=== PATIENT | male | born 1960 | race African-American/Black ===

== ENCOUNTER 2018-02-24 15:48 | Emergency (ER) | payer OTHER ==
[2018-02-24] MEDS ORDERED: Naproxen 500 MG TAB ONE (17:41)
[2018-02-24 17:48] LABS: #Basophils 0.1 thou/uL (0.0-0.2); #Eosinphils 0.1 thou/uL (0.0-0.7); #Lymphocytes 1.9 thou/uL (1.20-3.40); #Monocytes 0.9 thou/uL (0.11-0.59); #Neutrophils 2.8 thou/uL (1.40-6.50); %Basophils 1.2 % (0.0-1.0); %Eosinophils 2.6 % (0.0-10.0); %Lymphocytes 33.1 % (21.0-51.0); %Monocytes 14.9 % (0.0-10.0); %Neutrophils 48.3 % (42.0-75.0); Hemoglobin 12.7 g/dL (14.0-18.0); Mean Corpuscular HGB CONC 33.4 g/dL (32.0-36.0); Mean Corpuscular Hemoglobin 31.8 pg (27.0-31.0); Mean Corpuscular Volume 95.1 fl (80.0-94.0); Mean Platelet Volume 7.1 fL (7.4-10.4); Platelet Count 228 thou/uL (130-400); RBC Distribution Width 15.2 % (11.5-14.5); Red Blood Cell (RBC) Count 3.99 mill/uL (4.70-6.10); White Blood Cell (WBC) Count 5.8 thou/uL (4.8-10.8)
[2018-02-24 18:01] LABS: ALT (SGPT) 29 U/L (8-55); AST (SGOT) 22 U/L (5-34); Albumin 3.7 g/dL (3.5-5.0); Alkaline Phosphatase 103 U/L (40-150); Anion Gap 12 mmol/L (10-20); BUN (Urea Nitrogen) 12 mg/dL (8.4-25.7); Bilirubin, Total 0.5 mg/dL (0.2-1.2); Calc. Creatinine Clearance 0 mL/min (70-130); Carbon Dioxide 27 mmol/L (22-29); Chloride 106 mmol/L (98-107); Estimated GFR-MDRD Greater than 90; Globulin 3.2 g/dL (2.4-3.5); Glucose 117 mg/dL (70-105); Potassium 3.8 mmol/L (3.5-5.1); Protein, Total 6.9 g/dL (6.0-8.3); Sodium 141 mmol/L (136-145)
== END 2018-02-24 19:35 | disposition short-term general hospital (02) ==
LOC: MADERS 15:48
DX: I82.621 Acute embolism and thrombosis of deep veins of right upper extremity (principal); F17.200 Nicotine dependence, unspecified, uncomplicated; Z85.038 Personal history of other malignant neoplasm of large intestine
CPT/HCPCS: 80053; 85025; 85379; 99284

== ENCOUNTER 2018-10-22 12:31 | Emergency (ER) | payer SELFPAY ==
[2018-10-22] MEDS ORDERED: Clindamycin 150 MG CAP ONE (13:03)
[2018-10-22] MEDS ORDERED: Morphine 4 MG/ML VIAL ONE (13:03)
[2018-10-22] MEDS ORDERED: Lidocaine 1% w/Epinephrine 1:100K 30 ML VIAL ONE (13:04)
[2018-10-22] MEDS ORDERED: Acetaminophen 325 MG TAB ONE (13:48)
[2018-10-22] MEDS ORDERED: HYDROcodone/Acetaminophen 10/325 mg Tablet ONE (13:48)
== END 2018-10-22 13:50 | disposition home or self-care (01) ==
LOC: MADERS 12:31
DX: L02.416 Cutaneous abscess of left lower limb (principal); F17.210 Nicotine dependence, cigarettes, uncomplicated
CPT/HCPCS: 10061; 96372; J2001; J2270

== ENCOUNTER 2018-12-23 09:40 | Emergency (ER) | payer SELFPAY | END 2018-12-23 10:37 | disposition home or self-care (01) | LOC: MADERS 09:40 | DX: K64.4 Residual hemorrhoidal skin tags (principal); F17.210 Nicotine dependence, cigarettes, uncomplicated | CPT/HCPCS: 99284 ==

== ENCOUNTER 2019-02-11 21:53 | Emergency (ER) | payer OTHER, SELFPAY ==
[~2019-02-11 21:53] MED LIST: Iopamidol 370 76% 100 ML VIAL ONE
[2019-02-11 22:40] LABS: #Lymphocytes 1.8 thou/uL (1.20-3.40); #Monocytes 0.5 thou/uL (0.11-0.59); #Neutrophils 5.7 thou/uL (1.40-6.50); %Basophils 0.5 % (0.0-1.0); %Eosinophils 0.2 % (0.0-10.0); %Lymphocytes 21.9 % (21.0-51.0); %Neutrophils 71.4 % (42.0-75.0); Hemoglobin 13.9 g/dL (14.0-18.0); Mean Corpuscular Hemoglobin 29.4 pg (27.0-31.0); Mean Corpuscular Volume 91.9 fL (78.0-98.0); Mean Platelet Volume 6.5 fL (7.4-10.4); Platelet Count 280 thou/uL (130-400); Red Blood Cell (RBC) Count 4.73 mill/uL (4.70-6.10)
[2019-02-11 22:54] LABS: ALT (SGPT) 16 U/L (8-55); AST (SGOT) 15 U/L (5-34); Albumin 4.2 g/dL (3.5-5.0); Alkaline Phosphatase 98 U/L (40-150); Anion Gap 14 mmol/L (10-20); BUN (Urea Nitrogen) 8 mg/dL (8.4-25.7); Bilirubin, Total 0.8 mg/dL (0.2-1.2); Calc. Creatinine Clearance 0 mL/min (70-130); Calcium 9.5 mg/dL (7.8-10.44); Carbon Dioxide 27 mmol/L (22-29); Chloride 101 mmol/L (98-107); Estimated GFR-MDRD Greater than 90; Globulin 3.6 g/dL (2.4-3.5); Glucose 115 mg/dL (70-105); Potassium 4.4 mmol/L (3.5-5.1); Protein, Total 7.8 g/dL (6.0-8.3); Sodium 138 mmol/L (136-145)
--- NOTE | 2019-02-11 23:06 | CT ---
FCT abdomen and pelvis with IV contrast. Oral contrast was not administered. INDICATIONS: Abdominal pain COMPARISON: None FINDINGS: Lung bases are clear Liver, spleen, and pancreas appear unremarkable. Stomach and duodenum appear unremarkable. Adrenal glands appear normal. Kidneys appear unremarkable. Collecting structures and urinary bladder appear unremarkable. Small 1.0 cm cystic lesion inferior left kidney. Small bowel loops are normal caliber and exhibit normal fold pattern. Appendix is identified and appears unremarkable. Stool throughout the colon. There is a segment of luminal narrowing in the mid sigmoid of uncertain s ignificance. Recommend elective colonoscopy Aorta is normal caliber. No evidence of retroperitoneal or mesenteric adenopathy. Mild prostatic hypertrophy. Subcutaneous tissues, abdominal wall, and muscular structures appear unremarkable. Osseous structures appear unremarkable. IMPRESSION: Segment of luminal narrowing in the sigmoid colon. Recommend elective colonoscopy. No acute process identified.
[2019-02-11 23:11] LABS: Bilirubin Negative (Negative); Blood, Urine Negative (Negative); Clarity Clear (Clear); Glucose, Urine (Dipstick) Negative (Negative); Leukocyte Negative (Negative); Nitrite Negative (Negative); Protein, Urine (Dipstick) Trace mg/dL (Neg-Trace); Urobilinogen 0.2 mg/dL (0.2-1.0)
== END 2019-02-11 23:39 | disposition home or self-care (01) ==
LOC: MADERS 21:53
DX: R10.9 Unspecified abdominal pain (principal); N50.811 Right testicular pain; F17.210 Nicotine dependence, cigarettes, uncomplicated
CPT/HCPCS: 36415; 74177; 80053; 81003; 85025; Q9967

== ENCOUNTER 2020-05-25 04:45 | Emergency (ER) | payer OTHER ==
[2020-05-25] MEDS ORDERED: Ketorolac Tromethamine 60 MG/2 ML VIAL ONE (05:11)
== END 2020-05-25 05:35 | disposition home or self-care (01) ==
LOC: MADERS 04:45
DX: S43.402A Unspecified sprain of left shoulder joint, initial encounter (principal); K21.9 Gastro-esophageal reflux disease without esophagitis; F17.210 Nicotine dependence, cigarettes, uncomplicated; X58.XXXA Exposure to other specified factors, initial encounter
CPT/HCPCS: 96372; 99283; J1885

== ENCOUNTER 2021-04-29 17:49 | Emergency (ER) | payer OTHER ==
[2021-04-29 18:44] LABS: #Basophils 0.1 thou/uL (0.0-0.2); #Eosinphils 0.2 thou/uL (0.0-0.7); #Lymphocytes 2.5 thou/uL (1.20-3.40); #Monocytes 0.4 thou/uL (0.11-0.59); #Neutrophils 3.7 thou/uL (1.40-6.50); %Basophils 1.1 % (0.0-1.0); %Eosinophils 2.9 % (0.0-10.0); %Lymphocytes 36.2 % (21.0-51.0); %Monocytes 5.6 % (0.0-10.0); %Neutrophils 54.2 % (42.0-75.0); Hemoglobin 14.2 g/dL (14.0-18.0); Mean Corpuscular HGB CONC 32.1 g/dL (32.0-36.0); Mean Corpuscular Hemoglobin 30.8 pg (27.0-31.0); Mean Corpuscular Volume 95.9 fL (78.0-98.0); Mean Platelet Volume 7.4 fL (7.4-10.4); Platelet Count 274 thou/uL (130-400); RBC Distribution Width 12.2 % (11.5-14.5); Red Blood Cell (RBC) Count 4.62 mill/uL (4.70-6.10); White Blood Cell (WBC) Count 6.8 thou/uL (4.8-10.8)
[2021-04-29 19:00] LABS: Acetaminophen Less than 6.0 mcg/mL (10.0-30.0); Alcohol Less than 10 mg/dL (Less than 10); Salicylate Less than 8.0 mg/dL (15.0-30.0)
[2021-04-29 19:03] LABS: ALT (SGPT) 18 U/L (8-55); AST (SGOT) 15 U/L (5-34); Alkaline Phosphatase 90 U/L (40-110); Anion Gap 14 mmol/L (10-20); BUN (Urea Nitrogen) 14 mg/dL (8.4-25.7); Bilirubin, Total 0.4 mg/dL (0.2-1.2); Calc. Creatinine Clearance 0 mL/min (70-130); Calcium 8.7 mg/dL (7.8-10.44); Carbon Dioxide 24 mmol/L (23-31); Chloride 102 mmol/L (98-107); Globulin 3.3 g/dL (2.4-3.5); Glucose 91 mg/dL (80-115); Lipase 24 U/L (8-78); Potassium 3.8 mmol/L (3.5-5.1); Protein, Total 7.3 g/dL (5.8-8.1); Sodium 136 mmol/L (136-145)
== END 2021-04-29 19:36 | disposition left against medical advice (07) ==
LOC: MADERS 17:49
DX: R07.89 Other chest pain (principal); K21.9 Gastro-esophageal reflux disease without esophagitis; F17.210 Nicotine dependence, cigarettes, uncomplicated; Z85.038 Personal history of other malignant neoplasm of large intestine
CPT/HCPCS: 36415; 71045; 80053; 80307; 83690; 84443; 84484; 85025; 93005

== ENCOUNTER 2022-01-11 10:44 | Outpatient (CLI) | payer OTHER | END 2022-01-11 10:45 | disposition home or self-care (01) | LOC: MADRAD 10:44 | PROVIDERS: ATTEND Family Medicine | DX: M25.511 Pain in right shoulder (principal); M19.011 Primary osteoarthritis, right shoulder ==

== ENCOUNTER 2022-04-05 06:05 | Emergency (ER) | payer OTHER ==
[2022-04-05] MEDS ORDERED: Ibuprofen 400 MG TAB ONE (06:41)
== END 2022-04-05 06:46 | disposition home or self-care (01) ==
LOC: MADERS 06:05
DX: M19.041 Primary osteoarthritis, right hand (principal); K21.9 Gastro-esophageal reflux disease without esophagitis; F17.210 Nicotine dependence, cigarettes, uncomplicated
CPT/HCPCS: 99283

== ENCOUNTER 2022-07-08 16:21 | Emergency (ER) | payer OTHER ==
[2022-07-08] MEDS ORDERED: HYDROcodone/Acetaminophen 5/325 mg Tablet ONE (17:09)
[2022-07-08] MEDS ORDERED: predniSONE 20 MG TAB ONE (17:09)
== END 2022-07-08 17:13 | disposition home or self-care (01) ==
LOC: MADERS 16:21
DX: M19.041 Primary osteoarthritis, right hand (principal); K21.9 Gastro-esophageal reflux disease without esophagitis; F17.210 Nicotine dependence, cigarettes, uncomplicated; M06.9 Rheumatoid arthritis, unspecified; Z85.038 Personal history of other malignant neoplasm of large intestine; Z79.899 Other long term (current) drug therapy
CPT/HCPCS: 99283; J7512

== ENCOUNTER 2022-08-09 17:34 | Emergency (ER) | payer OTHER | END 2022-08-09 17:55 | disposition left against medical advice (07) | LOC: MADERS 17:34 | DX: Z53.21 Procedure and treatment not carried out due to patient leaving prior to being seen by health care provider (principal) ==

== ENCOUNTER 2022-10-21 08:10 | Emergency (ER) | payer OTHER ==
[2022-10-21] MEDS ORDERED: predniSONE 20 MG TAB ONE (08:49)
== END 2022-10-21 08:55 | disposition home or self-care (01) ==
LOC: MADERS 08:10
DX: M06.9 Rheumatoid arthritis, unspecified (principal); F17.210 Nicotine dependence, cigarettes, uncomplicated
CPT/HCPCS: 99283; J7512

== ENCOUNTER 2022-11-14 12:21 | Emergency (ER) | payer OTHER ==
[2022-11-14] MEDS ORDERED: Ketorolac Tromethamine 60 MG/2 ML VIAL ONE (12:50)
[2022-11-14] MEDS ORDERED: Dexamethasone 10 MG/ML VIAL ONE (12:50)
== END 2022-11-14 13:46 | disposition home or self-care (01) ==
LOC: MADERS 12:21
DX: R22.32 Localized swelling, mass and lump, left upper limb (principal); F17.210 Nicotine dependence, cigarettes, uncomplicated
CPT/HCPCS: 96372; J1100; J1885

== ENCOUNTER 2023-01-05 11:59 | Emergency (ER) | payer OTHER ==
[2023-01-05] MEDS ORDERED: Ibuprofen 800 MG TAB ONE (12:23)
[2023-01-05] MEDS ORDERED: predniSONE 10 MG TAB ONE (12:23)
[2023-01-05] MEDS ORDERED: predniSONE 20 MG TAB ONE (12:23)
== END 2023-01-05 12:33 | disposition home or self-care (01) ==
LOC: MADERS 11:59
DX: M19.90 Unspecified osteoarthritis, unspecified site (principal); M06.9 Rheumatoid arthritis, unspecified; F17.210 Nicotine dependence, cigarettes, uncomplicated
CPT/HCPCS: 99283; J7512

== ENCOUNTER 2023-01-19 09:13 | Emergency (ER) | payer OTHER ==
[2023-01-19] MEDS ORDERED: Dexamethasone 10 MG/ML VIAL ONE (09:57)
== END 2023-01-19 10:09 | disposition home or self-care (01) ==
LOC: MADERS 09:13
DX: M06.9 Rheumatoid arthritis, unspecified (principal); F17.210 Nicotine dependence, cigarettes, uncomplicated
CPT/HCPCS: 36416; 96372; 99283; J1100

== ENCOUNTER 2023-02-14 09:44 | Emergency (ER) | payer OTHER | END 2023-02-14 11:17 | disposition home or self-care (01) | LOC: MADERS 09:44 | DX: U07.1 COVID-19 (principal); M79.622 Pain in left upper arm; M06.9 Rheumatoid arthritis, unspecified; F17.210 Nicotine dependence, cigarettes, uncomplicated; Z79.899 Other long term (current) drug therapy; Z85.038 Personal history of other malignant neoplasm of large intestine | CPT/HCPCS: 36416; 71046; U0003; U0005 ==

== ENCOUNTER 2023-03-03 07:01 | Emergency (ER) | payer OTHER | END 2023-03-03 07:59 | disposition home or self-care (01) | LOC: MADERS 07:01 | DX: M06.9 Rheumatoid arthritis, unspecified (principal); M13.161 Monoarthritis, not elsewhere classified, right knee; F17.210 Nicotine dependence, cigarettes, uncomplicated; Z85.038 Personal history of other malignant neoplasm of large intestine; Z79.899 Other long term (current) drug therapy | CPT/HCPCS: 96372; 99283; J1040 ==

== ENCOUNTER 2023-03-24 13:03 | Emergency (ER) | payer OTHER ==
[2023-03-24] MEDS ORDERED: HYDROmorphone 0.5 MG/0.5 ML SYRINGE ONE (14:18)
[2023-03-24] MEDS ORDERED: Ketorolac Tromethamine 30 MG/ML VIAL ONE (14:19)
[2023-03-24] MEDS ORDERED: Promethazine HCl 25 MG/ML VIAL ONE (14:19)
== END 2023-03-24 14:44 | disposition home or self-care (01) ==
LOC: MADERS 13:03
DX: M06.9 Rheumatoid arthritis, unspecified (principal); J44.1 Chronic obstructive pulmonary disease with (acute) exacerbation; F17.210 Nicotine dependence, cigarettes, uncomplicated
CPT/HCPCS: 96372; J1040; J1170; J1885; J2550

== ENCOUNTER 2023-10-20 04:56 | Emergency (ER) | payer OTHER, SELFPAY ==
[2023-10-20] MEDS ORDERED: Ibuprofen 800 MG TAB ONE (06:46)
[2023-10-20] MEDS ORDERED: predniSONE 10 MG TAB ONE (08:05)
[2023-10-20] MEDS ORDERED: predniSONE 20 MG TAB ONE (08:05)
== END 2023-10-20 08:23 | disposition home or self-care (01) ==
LOC: MADERS 04:56
DX: M25.461 Effusion, right knee (principal); M25.861 Other specified joint disorders, right knee; F17.210 Nicotine dependence, cigarettes, uncomplicated
CPT/HCPCS: J7512